=== PATIENT | female | born 1970 | race Caucasian/White ===

== ENCOUNTER 2019-08-06 09:59 | Inpatient (IN) ==
[2019-08-06] MEDS ORDERED: DILAUDID IV ONE (10:38)
[2019-08-06] MEDS ORDERED: ZOFRAN IV ONE (10:38)
[2019-08-06 11:16] LABS: BASO# 0.04 X1000 (0.0-0.2); BASO% 0.4 % (0.0-0.8); EOS# 0.45 X1000 (0.0-0.7); EOS% 4.2 % (0.0-10.0); HEMATOCRIT 38.1 % (37.0-47.0); HEMOGLOBIN 12.9 g/dL (12.0-16.0); IMM GRAN# 0.05 X1000 (0.0-0.04); IMM GRAN% 0.5 % (0.0-0.5); MCH 31.6 PG (27-31); MCHC 33.9 g/dL (33-37); MCV 93.4 FL (81-99); MONO# 0.92 X1000 (0.11-0.59); MONO% 8.6 % (1.7-9.3); MPV 10.2 FL (7.4-10.4); NEUT# 7.48 X1000 (1.4-6.5); NEUT% 70.3 % (42.2-75.2); PLT 390 X1000 (130-400); RBC 4.08 XMIL (4.2-5.4); RDW 12.2 % (11.5-14.5); WBC 10.64 X1000 (4.8-10.8)
--- NOTE | 2019-08-06 12:32 | Diag Imaging Result Doc PS360 ---
EXAM: CT ABD/PELVIS W/IV CONT ONLY 08/06/2019 HISTORY: s/p diverting colostomy, new induration/erythema TECHNIQUE: This exam was performed using automated exposure control, adjustment of mA or kV according to patient size, and/or use of iterative reconstruction technique. COMMENT: The current study is compared with the previous examination of 10/27/2018. The platelike atelectasis which was previously present in the left lower lobe has apparently resolved. There is an ill-defined area of pleural based opacity in the left lower lobe on the first image which may be due to dependent atelectasis. The liver is hypodense suggesting fatty change. The adrenal glands are not enlarged. The spleen is not enlarged. The pancreas is normal in appearance. The kidneys are without evidence of hydronephrosis or mass. There has been cholecystectomy. There is skin thickening and induration in the fat surrounding the proximal portion of the colostomy in the left anterior abdomen. There is a fluid collection adjacent to the afferent limb measuring 14 mm in diameter. The colostomy and associated changes were not present on the previous examination. The possibility of subcutaneous abscess cannot be excluded. There is stool in the ascending colon. The appendix is normal in appearance. There is no evidence of small bowel dilatation. Pelvis: There is no evidence of free fluid. The endometrial stripe is thickened particularly in the fundus. There may be a submucous fibroid in the fundus. This appearance has not changed significantly since the previous study. The urinary bladder is not distended. There is a right ovarian cyst measuring 2.5 cm in diameter. There are some degenerative disc and facet changes in the lumbar spine. No acute bony abnormalities are present. IMPRESSION: Inflammation surrounding the afferent loop of the colostomy with possible abscess. Hepatic steatosis. Right ovarian cyst. Electronically signed by Ryan Light 08/06/2019 12:30 PM
[2019-08-06] MEDS ORDERED: FLAGYL 500 MG/NS 500 MG/100 ML IVPB IV ONE (12:56)
[2019-08-06] MEDS ORDERED: CIPRO 400 MG/D5W 400 MG/200 ML IVPB IV ONE (12:56)
[2019-08-06 13:32] LABS: AGAP 13; ALB/GLOB RATIO 1.1; ALBUMIN 4.1 g/dL (3.5-5.0); ALKALINE PHOSPHATASE 110 U/L (32-104); BUN 8 mg/dL (8-22); CALCIUM 8.5 mg/dL (8.8-10.2); CHLORIDE 101 mmol/L (98-107); COSMO 280; CREATININE 0.6 mg/dL (0.5-0.9); ESTIMATED GFR > 60; GLUCOSE 108 mg/dL (70-104); GOT 18 U/L (10-30); GPT 16 U/L (10-36); POTASSIUM 3.7 mmol/L (3.5-5.1); SODIUM 141 mmol/L (136-145); TCO2 27 mmol/L (25-35); TOTAL BILIRUBIN 0.38 mg/dL (0.20-1.00); TOTAL PROTEIN 7.8 g/dL (6.3-8.3)
--- NOTE | 2019-08-06 13:42 | GENERAL SURGERY CONSULTATION ---
DATE: 08/06/2019 REQUESTING PHYSICIAN: Emergency Department. CONSULT CONCERNING: Abscess around ostomy. HISTORY OF PRESENT ILLNESS: A 48-year-old female who is well known to me who has had a transverse diverting loop colostomy for severe Crohn's places over a year ago. She noticed over the last week pain and redness and a knot appearing. She came to the emergency department because of this discomfort. CT scan was done that showed an abscess at her ostomy. She is going to be admitted to the hospitalist service. I was asked to weigh an opinion. PAST MEDICAL HISTORY: 1. Includes Crohn's. 2. Hiatal hernia. 3. Gastroesophageal reflux disease. 4. Sleep apnea. 5. Hypertension. 6. Gastritis. PAST SURGICAL HISTORY: Includes carpal tunnel, recent history of a diverting loop colostomy. SOCIAL HISTORY: Lives at home with . Nonsmoker. Occasional alcohol. ALLERGIES: None. HOME MEDICATIONS: Reviewed. FAMILY HISTORY: Reviewed with patient, noncontributory. REVIEW OF SYSTEMS: Full 14 systems reviewed are negative except as specified in HPI. PHYSICAL EXAMINATION: Vital Signs: Patient is currently afebrile. Her vital signs are stable. General: No acute distress. Alert, interactive female looks stated age. HEENT: Normocephalic, atraumatic. Pupils equal, round, reactive to light. Mucous membranes moist. Oropharynx benign. Neck: Supple. Trachea midline. Cardiovascular: Regular rate and rhythm. Lungs: Grossly clear. Abdomen: Soft, obese, tender to palpation right at diverting loop colostomy, some redness at the skin. No peritoneal signs. Ostomy appears to be viable. Extremities: Moves all extremities. Neurologic: Grossly intact. Skin: No signs of jaundice. Vascular: All extremities perfused. LABORATORY: White blood cell count 10, hematocrit 31, platelet count 390,000. CT scan independently reviewed and radiology report reviewed. ASSESSMENT AND PLAN: A 48-year-old female with abscess at a diverting loop colostomy secondary to Crohn's. Abscess. At this time I agree with admission, start on IV antibiotics. She will likely need GI consult. She may need more aggressive suppression therapy for her Crohn's maybe even need steroids. Will get the hospitalist to admit her and consult GI for further evaluation. At this point I think draining the abscess would be high risk damaging the colostomy and does not look like a large abscess so I think we can probably just manage it with antibiotics. cc: Zia Shi MD
[2019-08-06 13:51] LABS: INR 0.98; PROTIME 13.1 Seconds (11.0-16.0); PTT 30.2 Seconds (22.3-41.8)
--- NOTE | 2019-08-06 14:28 | PROVIDER DOCUMENTATION ---
This chart was entered by Lakeisha Salinas Scribe, acting as scribe for Fili Hale MD. HPI-Abdominal Pain/GI Problem - General Chief Complaint: Abdominal Pain Stated Complaint: PAIN AROUND COLOSTOMY BAG Time Seen by Provider: 08/06/19 10:27 Source: patient Allergies/Adverse Reactions: Patient Allergies Allergy/AdvReac Type Severity Reaction Status Date / Time No Known Allergies Allergy Verified 08/06/19 11:20 Home Medications: Home Medication List Medication Instructions Recorded Confirmed Last Taken Type Dicyclomine [Bentyl] 10 mg PO BID 07/23/18 10/27/18 10/26/18 21:30 History Lisinopril 20 mg PO DAILY 07/23/18 10/27/18 10/26/18 08:00 History Zolpidem Tartrate [Ambien] 5 mg PO QHS 07/23/18 10/27/18 10/26/18 23:30 History Folic Acid 1 mg PO BID 30 Days #60 tab 07/26/18 10/27/18 10/26/18 20:30 Rx Mesalamine D.r. [Asacol Hd] 800 mg PO TID 7 Days #21 tab 07/26/18 10/27/18 10/26/18 21:30 Rx Omeprazole [Prilosec] 40 mg PO BID 30 Days #60 cap 07/26/18 10/27/18 10/26/18 21:30 Rx Amphetamine Salts [Adderall] 30 mg PO BID 10/25/18 10/27/18 10/26/18 15:00 History Atorvastatin Calcium 20 mg PO DAILY 10/25/18 10/27/18 10/26/18 20:30 History Azathioprine 50 mg PO DAILY 10/25/18 10/27/18 10/26/18 08:00 History Ferrous Sulfate [Ferrousul] 325 mg PO DAILY 10/25/18 10/27/18 10/26/18 21:30 History Vedolizumab [Entyvio] 0 mg IV DIRECTED 10/25/18 10/25/18 10/23/18 10:00 History Ascorbic Acid [Vitamin C] 500 mg PO DAILY 10/27/18 10/27/18 10/26/18 21:30 History Hydrocodone Bit/Acetaminophen 1 each PO Q4H PRN PRN #30 tablet 11/02/18 Unknown Rx [Hydrocodon-Acetaminophn 10325] Prednisone 40 mg PO DAILY #0 11/02/18 10/27/18 10/26/18 08:00 Rx - History of Present Illness-ABD Nature of Presenting Problems: 48 y/o female presents to ED with pain around colostomy onset 3 days ago. Pt reports she has ulcerative colitis and had colostomy last year. Pt states her pain "felt like a bruise" at first, but has worsened since yesterday. Pt is alert and oriented. Abdominal Pain Onset Location: reports: other (around colostomy) Pain Radiation: reports: no radiation Quality of Pain: reports: aching Severity in ED: reports: mild Onset/Duration: reports: 3 days ago Timing: reports: still present, getting worse Activities at Onset: reports: none Exposure to sick contacts?: No Modifying Factors: worse with: palpation Associated Symptoms: reports: other (pain around colostomy) Similar Symptoms Previously?: No Recently seen or treated by another doctor?: No Review of Systems - Adult - REVIEW OF SYSTEMS - ADULT Constitutional: denies: chills, fever Eyes: reports: no symptoms reported Ears, Nose, Mouth & Throat: reports: no symptoms reported Cardiovascular: denies: chest pain, palpitations Respiratory: denies: cough, shortness of breath Gastrointestinal: reports: other (pain around colostomy). denies: abdominal pain, diarrhea, nausea, vomiting Genitourinary: reports: no symptoms reported Musculoskeletal: denies: back pain, joint pain Integumentary: reports: no symptoms reported Neurological: denies: dizziness/vertigo, seizure Psychiatric: reports: no symptoms reported Endocrine: reports: no symptoms reported Hematologic/Lymphatic: reports: no symptoms reported Allergic/Immunologic: reports: no symptoms reported All Other Systems: Reviewed and Negative Past History - Adult - PAST MEDICAL HISTORY-ADULT Review of Records: reports: Old Records Reviewed, Nursing Assessment Review, Medications Reviewed Major Childhood Illnesses: reports: denies history Cardiovascular: reports: HTN Respiratory: reports: sleep apnea - PRIOR SURGERIES/PROCEDURES Surgical/Procedure History: reports: orthopedic (extremity) (carpal tunnel) - IMMUNIZATION STATUS Childhood Immunizations: See Nurse Assessment Flu Vaccine: See Nurse Assessment - FAMILY HISTORY Family History: reviewed, not pertinent - SOCIAL HISTORY Smoking: non-smoker Substance Use: none/never Alcohol Use Frequency: occasionally Living Situation: family Physical Exam-General - PHYSICAL EXAM-ADULT Initial Vital Signs Reviewed: Yes - CONSTITUTIONAL General Appearance: appears well, alert, no apparent distress - EYES Eyes: PERRL/EOMI, pink conjunctivae - HEAD, EARS, NOSE, MOUTH & THROAT HENMT: normocephalic/atraumatic, moist mucous membranes, normal ENT inspection - NECK Neck: non-tender, full range of motion - RESPIRATORY Respiratory: chest non-tender, lungs clear, normal breath sounds - CARDIOVASCULAR Cardiovascular: normal peripheral pulses, regular rate, rhythm - GASTROINTESTINAL (ABDOMEN) Abdominal Exam: normal bowel sounds, non tender, soft, other (colostomy in place) - MUSCULOSKELETAL Back Exam: normal inspection, no CVA tenderness Extremity: normal range of motion, non-tender, normal gait - SKIN Integumentary: normal color, warm/dry, erythema (at the right margin of colostomy bag), tenderness (at the right margin of colostomy bag), other (induration at the right margin of colostomy bag) - NEUROLOGIC Neurologic: grossly normal - PSYCHIATRIC Psych/Mental Status: normal mood/affect, normal thought content, normal thought process, oriented x 3 Progress - PLAN OF CARE/RESULTS Progress/Plan/Lab Results: Vital Signs - 8 hr 08/06/19 10:06 Temperature 97.9 F Pulse Rate 103 H Respiratory Rate 17 Blood Pressure 110/53 O2 Sat by Pulse Oximetry 96 Laboratory Results - last 24 hr 08/06/19 10:41 WBC 10.64 RBC 4.08 L Hgb 12.9 Hct 38.1 MCV 93.4 MCH 31.6 H MCHC 33.9 RDW Std Deviation 12.2 Plt Count 390 MPV 10.2 Immature Gran % (Auto) 0.5 Neut % (Auto) 70.3 Lymph % (Auto) 16.0 L Coffey % (Auto) 8.6 Eos % (Auto) 4.2 Baso % (Auto) 0.4 Immature Gran # (Auto) 0.05 H Neut # (Auto) 7.48 H Lymph # (Auto) 1.70 Coffey # (Auto) 0.92 H Eos # (Auto) 0.45 Baso # (Auto) 0.04 Orders Category Date Time Status CT ABD/PELVIS W/IV CONT ONLY [CT] Stat Exams 08/06/19 10:33 Ordered CBC WITH DIFF [HEME] Stat Lab 08/06/19 10:41 Completed Hydromorphone [Dilaudid] Med 08/06/19 10:38 Discontinued 1 mg IV NOW ONE Ondansetron [Zofran] Med 08/06/19 10:38 Discontinued 4 mg IV NOW ONE Laboratory Tests 08/06/19 08/06/19 08/06/19 10:41 10:41 10:41 WBC 10.64 RBC 4.08 L Hgb 12.9 Hct 38.1 MCV 93.4 MCH 31.6 H MCHC 33.9 RDW Std Deviation 12.2 Plt Count 390 MPV 10.2 Immature Gran % (Auto) 0.5 Neut % (Auto) 70.3 Lymph % (Auto) 16.0 L Coffey % (Auto) 8.6 Eos % (Auto) 4.2 Baso % (Auto) 0.4 Immature Gran # (Auto) 0.05 H Neut # (Auto) 7.48 H Lymph # (Auto) 1.70 Coffey # (Auto) 0.92 H Eos # (Auto) 0.45 Baso # (Auto) 0.04 PT 13.1 INR 0.98 PTT (Actin FS) 30.2 Sodium 141 Potassium 3.7 Chloride 101 Carbon Dioxide 27 Anion Gap 13 BUN 8 Creatinine 0.6 Estimated GFR/1.73 m2 > 60 BUN/Creatinine Ratio 13 Glucose 108 H Calculated Osmolality 280 Calcium 8.5 L Total Bilirubin 0.38 AST 18 ALT 16 Alkaline Phosphatase 110 H Total Protein 7.8 Albumin 4.1 Globulin 3.7 Albumin/Globulin Ratio 1.1 Result Diagrams: 08/06/19 10:41 08/06/19 10:41 - CT/MRI 1 CT Study: Abdomen, Pelvis Impression: See EMR Report ([facility] - [address] [facility], [address], [place] [address] [facility] - [address] [place] [address] Department of Imaging Patient: LANDON CRISTOBAL Date: 08/06/19MR#: [id number] : 1970ADM Status: REG ERAcct#: [id number] Age/Sex: 48/FRoom/Bed: Loc: ED Ordering Physician: Fili Hale MD Family Physician: James,Juliano C. DO Reason for Procedure: s/p diverting colostomy, new induration/erythema Signed EXAM: CT ABD/PELVIS W/IV CONT ONLY 08/06/2019 HISTORY: s/p diverting colostomy, new induration/erythema TECHNIQUE: This exam was performed using automated exposure control, adjustment of mA or kV according to patient size, and/or use of iterative reconstruction technique. COMMENT: The current study is compared with the previous examination of 10/27/2018. The platelike atelectasis which was previously present in the left lower lobe has apparently resolved. There is an ill-defined area of pleural based opacity in the left lower lobe on the first image which may be due to dependent atelectasis. The liver is hypodense suggesting fatty change. The adrenal glands are not enlarged. The spleen is not enlarged. The pancreas is normal in appearance. The kidneys are without evidence of hydronephrosis or mass. There has been cholecystectomy. There is skin thickening and induration in the fat surrounding the proximal portion of the colostomy in the left anterior abdomen. There is a fluid collection adjacent to the afferent limb measuring 14 mm in diameter. The colostomy and associated changes were not present on the previous examination. The possibility of subcutaneous abscess cannot be excluded. There is stool in the ascending colon. The appendix is normal in appearance. There is no evidence of small bowel dilatation. Pelvis: There is no evidence of free fluid. The endometrial stripe is thickened particularly in the fundus. There may be a submucous fibroid in the fundus. This appearance has not changed significantly since the previous study. The urinary bladder is not distended. There is a right ovarian cyst measuring 2.5 cm in diameter. There are some degenerative disc and facet changes in the lumbar spine. No acute bony abnormalities are present. IMPRESSION: Inflammation surrounding the afferent loop of the colostomy with possible abscess. Hepatic steatosis. Right ovarian cyst. Electronically signed by Ryan Light 08/06/2019 12:30 PM 08/06/19 1230 Interpreting Physician: Ryan Light MD Dictated Date/Time: 08/06/19 1221 cc: Fili Hale MD; Juliano Ramirez DO) - CONSULTS/PCP/HOSPITALIST Notification #1 *Consult/PCP/Hospitalist*: Dr. Shi Time Discussed: 12:52 Reason/Comments: CT results Consult Disposition: Will see in ED, Admit (to hospitalist with GI consult) #2 Consult: KENJI Jerez for Dr. Isabel Time Discussed: 14:00 Reason/Comments: Colitis with abscess Consult Disposition: Admit Departure - Departure Date of Disposition Decision: 08/06/19 Time of Disposition Decision: 14:01 DIAGNOSIS: Colitis with abscess Disposition: ADMITTED INPATIENT 09 Certified Medical Emergency: Emergent Condition: Stable Additional Freetext Instructions: ED Follow Up Instructions: You have been treated by a care provider in the Emergency Department. These instructions are being provided to you so you can have an understanding of how to care for yourself upon discharge. Upon discharge from the Emergency Department, you are responsible for making arrangements for follow-up care by a physician of your choice. Take all prescribed medications as directed. Return to the Emergency Department immediately for any new or worsening symptoms. You may call the Physician Referral phone number at [phone] to obtain a list of Physicians who are taking new patients. Referrals and Follow-Ups: Juliano Ramirez DO [Primary Care Provider] - - Critical Care Note This patient required my direct & personal management of CC.: No Attestation - Physician/ ROBBIE Attestation Patient care was provided by Advanced Practice Provider:: No The physician spent face to face time with patient:: Yes Advanced Practice Provider documentation review:: Supervising physician onsite and consulted in the evaluation and care of this patient. The physician did have a face to face encounter with the patient. This chart was documented by the indicated scribe, (Lakeisha Salinas Scribe) and accurately reflects the services I performed and decisions made by me, [place] Fili patel MD, as attested by the provider's signature.
--- NOTE | 2019-08-06 14:57 | HISTORY AND PHYSICAL ---
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 Was admitted by Dr. Shi. She is having pain, irritation, looks like she has an abscess at about 8 o'clock under her colostomy and some surrounding swelling and wants to try antibiotics. She has been diagnosed with Crohn's disease, initially thought to be ulcerative colitis. Apparently she had some fistulas around the rectum and she got a colostomy last October and felt it was more consistent with Crohn's disease, small bowel inflammation. She is status post cholecystectomy. She has a history of hypertension, hypercholesterolemia. 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 She has had bilateral carpal tunnel release performed and then a colostomy. ALLERGIES: No known drug allergies. FAMILY HISTORY: Really no family members with known inflammatory bowel disease. She has 3 children. She has 2 siblings that neither have any trouble. Her parents did not have any health problems that she is aware. REVIEW OF SYSTEMS: General: No weight gain or loss. No fever, chills, and I think she has had some subjective fever last couple days. HEENT: No change in visual or hearing acuity. Neck: No neck pain or adenopathy appreciated. Respiratory: No increased work of breathing or dyspnea. Cardiovascular: No chest pain or tachypalpitations. GI/: No gross hematuria or dysuria. She is not having a problem with her bowels. Colostomy is emptying. Stools look normal, but she is having pain around her medial portion of her colostomy. PHYSICAL EXAMINATION: VITAL SIGNS: Temp 97.9 degrees, pulse 103, respirations 17 blood pressure 110/53. HEENT: Pupils are equal and round. LUNGS: Are clear in all lung armstrong. CARDIOVASCULAR: Regular rhythm and rate without murmur or S3. ABDOMEN: Soft. SKIN: Warm and dry. ABDOMEN: Tender area around her colostomy on the left mid abdomen and there is a point where it is very tender. She feels like that is where the abscess is, right around 8 o'clock, about 1 inch from the margin of the colostomy bag. Weight is 219 pounds. Height 5 feet 4 inches. Her pupils are equal no distended neck veins. NECK: Supple. No sign of thyromegaly. No skin rashes. No history of skin rash. No oral or nasal mucosa lesions. White blood cell count 80010, hematocrit is 38, platelet count 390,000. Sodium 141, potassium 3.7, chloride 101, BUN 8, creatinine 0.6. AST is 18, ALT is 16, alkaline phosphatase is 110. Pro- time is 13.1, INR is 0.98, PTT is 30.2. Abdominal and pelvic CT: Inflammation surrounding efferent loop of the colostomy and possible abscess, hepatic steatosis. Right ovarian cyst is appreciated as well. ASSESSMENT AND PLAN: 1. Crohn's disease with a colostomy. It appears that she has some inflammation and possible abscess around the diverting loop colostomy secondary probably to her Crohn's. We will keep her on ciprofloxacin and Flagyl which should cover good for gram-negative and anaerobes. At this point, I do not want to do a needle biopsy or drainage and continue with conservative management. We will give her IV fluids, run normal saline at 85 mL an hour. I am going to check her C-reactive protein and erythrocyte sedimentation rate to just give us an idea of the inflammatory response of the Crohn's. Nutrition looks good. Albumin is 4.1. 2. History of hypertension. Blood pressure looks good. 3. History of hypercholesterolemia. Looking over her medications, she apparently has a history of ADD as well. She is on Adderall 30 mg p.o. b.i.d. She is getting ascorbic acid 500 mg b.i.d., atorvastatin to 20 mg daily, azathioprine 50 mg p.o. daily, Curcumin 750 mg b.i.d., Bentyl 10 mg p.o. t.i.d., vitamin D which is D2, ergocalciferol 55787 units q.week, ferrous sulfate 325 mg b.i.d., folic acid 1 mg b.i.d., lisinopril 20 mg a day, Asacol HD which is 800 mg p.o. t.i.d., she was taking that for 7 days, but we will probably continue that, Prilosec 40 mg b.i.d., Entyvio, I think she may get that every couple weeks, we will see what her regimen is, Effexor XR 150 mg daily and Ambien 50 mg p.o. at bedtime. cc: Prince Isabel MD
[2019-08-06 16:23] LABS: FREE T4 1.02 ng/dL (0.93-1.70); TSH 3.05 uIUmL (0.27-4.20)
[2019-08-06] MEDS: ASACOL HD PO SCH (17:06)
[2019-08-06] MEDS: NS 1,000 ML IV SCH (17:06)
[2019-08-06] MEDS: DILAUDID IV PRN ×2 (17:07→23:23)
[2019-08-06] MEDS: BENTYL PO SCH (17:07)
[2019-08-06] MEDS: ZOFRAN IV PRN ×2 (17:36→23:23)
[2019-08-06] MEDS: PRILOSEC PO SCH (20:18)
[2019-08-06] MEDS: FOLIC ACID PO SCH (20:18)
[2019-08-06] MEDS: VITAMIN C PO SCH (20:18)
[2019-08-06] MEDS: FERROUS SULFATE PO SCH (20:18)
[2019-08-06] MEDS: FLAGYL 500 MG/NS 500 MG/100 ML IVPB IV SCH (20:18)
[2019-08-06] MEDS: AMBIEN PO SCH (20:18)
[2019-08-07] MEDS: CIPRO 400 MG/D5W 400 MG/200 ML IVPB IV SCH ×2 (02:35→13:00)
[2019-08-07] MEDS: ASACOL HD PO SCH ×3 (02:35→18:15)
[2019-08-07] MEDS: NS 1,000 ML IV SCH ×2 (05:30→15:52)
[2019-08-07] MEDS: DILAUDID IV PRN ×4 (05:30→22:01)
[2019-08-07] MEDS: ZOFRAN IV PRN ×4 (05:30→22:00)
[2019-08-07] MEDS: FLAGYL 500 MG/NS 500 MG/100 ML IVPB IV SCH ×3 (05:30→22:02)
--- NOTE | 2019-08-07 06:14 | GENERAL SURGERY PROGRESS NOTE ---
DATE: 08/07/2019 SUBJECTIVE: Patient seems to be doing about the same. Still having some abdominal pain, but otherwise doing okay. OBJECTIVE: Vital Signs: Patient is currently afebrile. Vital signs stable. General: No acute distress. HEENT: Normocephalic, atraumatic. Pupils equal, round, reactive to light. Mucous membranes moist. Oropharynx benign. Neck: Supple. Trachea midline. Cardiovascular: Regular rate and rhythm. Lungs: Grossly clear. Abdomen: Soft, tender to palpation around her ostomy. Extremities: Moves all extremities. Neurologic: Grossly intact. Skin: No signs of jaundice, but some mild redness around her ostomy. Vascular: All extremities perfused. LABORATORY: None this morning as of yet. ASSESSMENT AND PLAN: A 48-year-old female with Crohn's associated abscess at her diverting loop colostomy. Crohn's substance associated abscess. At this time, I agree with IV antibiotics. GI has been consulted, we will follow up with their recommendation. The patient will likely need some degree of immunosuppression, be it steroids or something more aggressive. We will follow up with their recommendations. cc: Zia Shi MD
[2019-08-07 06:24] LABS: BASO# 0.03 X1000 (0.0-0.2); BASO% 0.3 % (0.0-0.8); EOS% 4.9 % (0.0-10.0); HEMATOCRIT 35.2 % (37.0-47.0); HEMOGLOBIN 11.6 g/dL (12.0-16.0); IMM GRAN# 0.05 X1000 (0.0-0.04); IMM GRAN% 0.5 % (0.0-0.5); LYMPH# 1.24 X1000 (1.2-3.4); LYMPH% 12.2 % (20.5-51.1); MCH 31.4 PG (27-31); MCV 95.4 FL (81-99); MONO# 1.13 X1000 (0.11-0.59); MONO% 11.1 % (1.7-9.3); MPV 10.1 FL (7.4-10.4); NEUT# 7.24 X1000 (1.4-6.5); PLT 369 X1000 (130-400); RBC 3.69 XMIL (4.2-5.4); RDW 12.3 % (11.5-14.5); WBC 10.19 X1000 (4.8-10.8)
[2019-08-07 06:52] LABS: AGAP 10; BUN 6 mg/dL (8-22); CALCIUM 8.2 mg/dL (8.8-10.2); CHLORIDE 100 mmol/L (98-107); COSMO 276; CREATININE 0.6 mg/dL (0.5-0.9); ESTIMATED GFR > 60; GLUCOSE 143 mg/dL (70-104); POTASSIUM 3.7 mmol/L (3.5-5.1); SODIUM 138 mmol/L (136-145); TCO2 28 mmol/L (25-35)
--- NOTE | 2019-08-07 08:40 | PROGRESS NOTE ---
DATE: 08/07/2019 SUBJECTIVE: Ms. Marte feels better. Says less pain. Did get some sleep last night. She has her CPAP on. OBJECTIVE: Vital Signs: Remains afebrile, temperature 98.2 degrees, pulse 79, respirations 17, blood pressure 132/70. HEENT: Pupils are equal and round. Lungs: Clear in all lung armstrong. Cardiovascular: Regular rhythm and rate without murmur or S3. Urine output was 2800 mL. ASSESSMENT AND PLAN: 1. History of Crohn's with rectal involvement. She has a colostomy. Appears that she has irritation and subcutaneous infection at her diverting loop of the colostomy. Continue antibiotics. Appears to be doing a little better. She is on a combination of metronidazole and ciprofloxacin. 2. Blood pressure appears well controlled. 3. She is tolerating oral intake. Note that C-reactive protein was elevated at 10.53. Thyroid functions appear euthyroid. cc: Prince Isabel MD
[2019-08-07] MEDS: PATIENT'S OWN MED PO SCH ×2 (10:36→22:02)
[2019-08-07] MEDS: VITAMIN C PO SCH ×2 (10:37→22:00)
[2019-08-07] MEDS: FERROUS SULFATE PO SCH ×2 (10:37→22:00)
[2019-08-07] MEDS: EFFEXOR XR PO SCH (10:37)
[2019-08-07] MEDS: PRILOSEC PO SCH ×2 (10:37→22:00)
[2019-08-07] MEDS: PRINIVIL PO SCH (10:38)
[2019-08-07] MEDS: IMURAN PO SCH (10:38)
[2019-08-07] MEDS: FOLIC ACID PO SCH ×2 (10:38→22:00)
[2019-08-07] MEDS: BENTYL PO SCH ×3 (10:39→18:15)
[2019-08-07] MEDS: TYLENOL PO PRN ×2 (14:49→22:14)
[2019-08-07] MEDS: AMBIEN PO SCH (22:00)
[2019-08-07] MEDS: LIPITOR PO SCH (22:01)
[2019-08-08] MEDS: CIPRO 400 MG/D5W 400 MG/200 ML IVPB IV SCH ×2 (01:50→13:24)
[2019-08-08] MEDS: ASACOL HD PO SCH ×3 (01:50→17:29)
[2019-08-08] MEDS: NS 1,000 ML IV SCH ×2 (03:13→18:36)
[2019-08-08] MEDS: FLAGYL 500 MG/NS 500 MG/100 ML IVPB IV SCH ×2 (05:38→17:29)
[2019-08-08] MEDS: TYLENOL PO PRN ×2 (05:44→23:14)
[2019-08-08] MEDS: DILAUDID IV PRN ×2 (05:44→23:15)
[2019-08-08] MEDS: ZOFRAN IV PRN ×2 (05:44→23:15)
--- NOTE | 2019-08-08 06:53 | GENERAL SURGERY PROGRESS NOTE ---
DATE: 08/08/2019 SUBJECTIVE: Patient seems to be doing okay. She is having ostomy output. She said her pain is improving. OBJECTIVE: Vital Signs: Patient is currently afebrile. Her vital signs stable. General Exam: No acute distress. HEENT: Normocephalic, atraumatic. Pupils equal, round, react to light. Mucous membranes moist. Oropharynx benign. Neck: Supple, trachea midline. Cardiovascular: Regular rate and rhythm. Lungs: Grossly clear. Abdomen: Soft, some tenderness around her ostomy, some minimal erythema. No peritoneal signs. Extremities: Moves all extremities. Neurologic: Grossly intact. Skin: No signs of jaundice. Vascular: All extremities perfused. LABORATORY: None this morning as of yet, but reviewed labs from yesterday. White blood cell count still normal. ASSESSMENT AND PLAN: A 48-year-old with Crohn's disease with associated abscess and diverting loop colostomy. Crohn's disease associated abscess. At this time, I agree with IV antibiotics. GI has been consulted. We will follow up with their recommendations. At this time, continue supportive care. cc: Zia Shi MD
[2019-08-08] MEDS: PRILOSEC PO SCH ×2 (10:09→23:14)
[2019-08-08] MEDS: VITAMIN C PO SCH ×2 (10:09→23:14)
[2019-08-08] MEDS: IMURAN PO SCH (10:09)
[2019-08-08] MEDS: BENTYL PO SCH ×3 (10:10→17:29)
[2019-08-08] MEDS: FERROUS SULFATE PO SCH ×2 (10:10→23:14)
[2019-08-08] MEDS: EFFEXOR XR PO SCH (10:10)
[2019-08-08] MEDS: FOLIC ACID PO SCH ×2 (10:10→23:15)
[2019-08-08] MEDS: PRINIVIL PO SCH (10:11)
--- NOTE | 2019-08-08 13:50 | PROGRESS NOTE ---
DATE: 08/08/2019 SUBJECTIVE: Ms. Marte feels a little better, a little less pain around her colostomy. Less tenderness. Remains afebrile. OBJECTIVE: Vital Signs: Temperature 98.3 degrees, pulse 82, respirations 16, blood pressure 162/68. HEENT: Pupils are equal and round. Lungs: Clear in all lung armstrong. Cardiovascular: Regular rate without murmur or S3. Abdomen: Soft. Skin: Warm and dry. ASSESSMENT AND PLAN: A 48-year-old with Crohn disease, associated abscess in the diverting loop colostomy. Continue IV antibiotics. Does seem to be clinically better. GI has been consulted. She does appear to have improved. CURRENT ORDERS: On Ambien 5 mg at bedtime, ascorbic acid 500 mg b.i.d., Lipitor 20 mg at bedtime, Imuran, which is azathioprine 50 mg daily, ciprofloxacin 400 mg IV q.12 hours, Bentyl 10 mg t.i.d., ferrous sulfate 325 mg b.i.d., Flagyl 500 mg IV q.8, folic acid 1 mg b.i.d., getting Dilaudid 1 mg IV q.4 hours p.r.n. pain, Prinivil 20 mg a day, mesalamine DR 800 mg p.o. q.8 hours, normal saline at 85 mL an hour, Prilosec 40 mg b.i.d., and Effexor ER 150 mg daily. cc: Prince Isabel MD
--- NOTE | 2019-08-08 15:47 | GASTROENTEROLOGY CONSULTATION ---
DATE: 08/08/2019 CONSULTING PHYSICIAN: Prince Isabel MD REASON FOR CONSULT: Abscess and Crohn disease. HISTORY: This is a 48-year-old, white female patient of Dr. Owens. I have been seeing her after Dr. Owens's medical leave. The patient has history of long-term Crohn disease. She has been on multiple medication. She currently takes Asacol 800 mg p.o. t.i.d. along with Imuran and is also on Entyvio infusions. Her last Entyvio infusion was about a week or so ago. The patient has history of perianal fistulas and had undergone diversion loop colostomy to let her perianal fistula heal and has been doing quite well except occasional discharge from the fistulas but did not see any blood or mucus in her stool, and was feeling well till about till few days ago, when she started having some abdominal pain which progressively got worse. The pain was located around her loop colostomy. She had noticed an area of induration and swelling there which was extremely tender to touch. With these she came to the hospital where she underwent imaging studies which showed possibility of an abscess. She was admitted to the hospital for further treatment. The patient tells me that she did not have any fever or chills. She has not had any indigestion, heartburn or reflux. She had not had any blood or mucus in her stool in the colostomy bag, but she did have some mucus discharge from the rectum. Her appetite has been good. She has been eating well up till now. She denies any chest pain, shortness of breath or irregular heartbeat. She has not had any dysuria, polyuria or hematuria. PAST MEDICAL HISTORY: Significant for hypertension, hyperlipidemia, and carries a diagnosis of Crohn disease with perianal fistulas. PAST SURGICAL HISTORY: She has had loop colostomy and also had a cholecystectomy. Carpal tunnel release bilateral. MEDICATION PRIOR TO HOSPITALIZATION,: She has been on Adderall, vitamin C, azathioprine, curcumin, Bentyl, vitamin D, iron, folic acid, lisinopril, Asacol Prilosec, Entyvio, Effexor XR and Ambien. ALLERGIES: No known drug allergies. SOCIAL HISTORY: She is . She has 3 children. 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 She does not smoke, justyna not drink, does no do illicit drugs. FAMILY HISTORY: Noncontributory. REVIEW OF SYSTEMS: As per HPI as above. PHYSICAL EXAMINATION: General: On examination, a very pleasant white female. She is lying in bed. She is conscious, alert, appears to be in no distress. Vital Signs: Temperature 98.5 degrees, pulse 71, breathing 16, blood pressure 109/46. She is 5 feet 4 inches tall and she is 224 pounds. HEENT: Head is atraumatic, normocephalic. Eyes: Conjunctivae is normal. Sclerae anicteric. Nares are patent. No discharge. Mouth: Buccal mucosa is moist. Throat is normal. Neck: Neck is supple. No lymphadenopathy or thyromegaly. Chest: Bilaterally symmetrical, moving with respirations. Breath sounds audible bilaterally. No rhonchi or crepitations could be heard. Heart: Audible. No murmur could be appreciated. Abdomen: Has a colostomy in her left side of the abdomen above the umbilicus. The stoma is pink. There was hyperemia noted around the colostomy. There was bluish swelling noted at about 10 o'clock position, which is tender to touch. The area over hyperemia was also tender to touch. Abdomen is otherwise soft. The rest of the abdomen was nontender. I could not appreciate any mass or visceromegaly. No ascites noted. Bowel sounds are audible but sluggish. No pedal edema, cyanosis, or clubbing was noted. 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 No sensory or motor deficit. LABORATORIES: Reviewed which showed WBC of 10.19 today. Hemoglobin 11.6, hematocrit 35.2, MCV 95.4, platelets were 369. Sodium 138, potassium 3.7, chloride 100, bicarbonate 28, BUN is 6, creatinine 0.6, transaminases were normal. CT scan of the abdomen reviewed, which showed evidence off colostomy. There was significant inflammation noted surrounding the afferent loop of the colostomy and there was question of possible abscess but I did not see any air-fluid levels there. IMPRESSION: This is a 48-year-old, white female with history of Crohn disease, perianal fistula and diversion loop colostomy to let her perianal fistula heal. She has presented with abdominal pain and evidence of possible cellulitis in the peristomal area, induration noted in the peristomal area suggestive of possibly an abscess. She has responded well to antibiotics. She is currently on IV antibiotics. She has been tolerating her diet well, otherwise. She feels much better now at this point, no new suggestion except to continue current treatment. Continue the antibiotic for at least 2 weeks. We need to reassess the treatment that she is on and see if we need to change her biologics. She has not responded to Entyvio. Her last calprotectin level on 21 of April was 106. The trough level was drawn on April 28 and was also low but did not have any antibodies. She may need more frequent Entyvio infusions. We need to increase her azathioprine also. Hopefully, those measures will get her disease under control. In the meantime, we will continue to follow her while she is in the hospital. I have explained the findings and plan to the patient and she understood. All their pertinent questions were answered. cc: MD Prince Sifuentes MD
[2019-08-08] MEDS: PATIENT'S OWN MED PO SCH (18:35)
[2019-08-08] MEDS: LIPITOR PO SCH (23:14)
[2019-08-08] MEDS: AMBIEN PO SCH (23:15)
[2019-08-09] MEDS: ASACOL HD PO SCH ×3 (01:09→16:50)
[2019-08-09] MEDS: CIPRO 400 MG/D5W 400 MG/200 ML IVPB IV SCH ×2 (01:09→13:12)
[2019-08-09] MEDS: NS 1,000 ML IV SCH ×2 (02:15→18:20)
[2019-08-09] MEDS: FLAGYL 500 MG/NS 500 MG/100 ML IVPB IV SCH ×3 (02:15→16:50)
[2019-08-09] MEDS: PATIENT'S OWN MED PO SCH ×3 (07:02→21:50)
--- NOTE | 2019-08-09 09:47 | GENERAL SURGERY PROGRESS NOTE ---
DATE: 08/09/2019 SUBJECTIVE: Patient seems to be doing a little bit better. Reviewed notes from other physicians and discussed case with Cecilia Ring with Wound Care. Patient seems to be feeling a little bit less tender in the area. She is having ostomy output. OBJECTIVE: Vital Signs: The patient is currently afebrile. Her vital signs are stable. General: No acute distress. HEENT: Normocephalic, atraumatic. Pupils equal, round, reactive to light. Mucous membranes moist. Oropharynx benign. Neck: Supple. Trachea midline. Cardiovascular: Regular rate and rhythm. Lungs: Grossly clear. Abdomen: Soft. Ostomy functioning. Reviewed images taken by Cecilia Ring when the appliance was off and it looks like it has a little bit of drainage. No peritoneal signs. Extremities: Moves all extremities. Neurologic: Grossly intact. Skin: No signs of jaundice. Vascular: All extremities perfused. LABORATORY DATA: None this morning as of yet. ASSESSMENT AND PLAN: A 48-year-old female with Crohn's flare up with abscess at diverting loop colostomy. Crohn's flare-up. At this time, I appreciate GIs input. Hopefully, we can continue just with IV antibiotics and get her out of the hospital here soon. Reviewed Dr. Valderrama's notes about changing the frequency of her anti-Crohn's medications. Otherwise, continue supportive care. cc: Zia Shi MD
[2019-08-09] MEDS: FERROUS SULFATE PO SCH ×2 (10:17→20:16)
[2019-08-09] MEDS: PRINIVIL PO SCH (10:17)
[2019-08-09] MEDS: IMURAN PO SCH (10:17)
[2019-08-09] MEDS: VITAMIN C PO SCH ×2 (10:17→20:16)
[2019-08-09] MEDS: FOLIC ACID PO SCH ×2 (10:17→20:16)
[2019-08-09] MEDS: PRILOSEC PO SCH ×2 (10:17→20:16)
[2019-08-09] MEDS: EFFEXOR XR PO SCH (10:17)
[2019-08-09] MEDS: BENTYL PO SCH ×3 (10:17→16:50)
--- NOTE | 2019-08-09 18:47 | GASTROENTEROLOGY PROGRESS NOTE ---
DATE: 08/09/2019 SUBJECTIVE: The patient states she is feeling a little better today. Her abdominal area is less tender. Wound care nurse saw the patient yesterday and was able to palpate some serous fluid from an opening at reddened area. Culture was obtained. Preliminary culture showing no growth. There were white blood cells moderate, no bacteria seen, and preliminary no growth. OBJECTIVE: Vital Signs: Temperature 97.8 degrees, pulse 77, respirations 20, blood pressure 123/58. General: The patient is awake and alert, in no acute distress. Abdomen: Ostomy bag intact. The patient has less redness today to the right of the ostomy. No drainage noted. LABORATORY DATA: Hematology 10.19, hemoglobin 11.6, hematocrit 35.2, MCV 95.4. Chemistry: Sodium 138, potassium 3.7, chloride 100, CO2 is 28, BUN 6, creatinine 0.6, glucose 143, calcium 8.2. ASSESSMENT AND PLAN: 1. Crohn flare-up. 2. Abscess at diverting loop colostomy, has improved with antibiotics. 3. Would continue current medications. Patient will likely require increased dose of Imuran but we will wait until she is finished with her antibiotics. May need to increase the frequency of her Entyvio infusions. Recommend she follow up with us as an outpatient regarding change or adjustment in her medications. Further plans to be made according to her progress. I have discussed this case with Dr. Valderrama. Dictated by KENJI Olivera for Alphonso Valderrama MD cc: KENJI Quarles MD
--- NOTE | 2019-08-09 19:01 | PROGRESS NOTE ---
DATE: 08/09/2019 SUBJECTIVE: Patient has no major complaints. She feels like her cellulitis is improved. OBJECTIVE: Blood pressure is 129/53, heart rate of 80, respiratory rate 16, temperature 98.5 degrees, 98% on room air. Cardiovascular: Regular rate and rhythm. Pulmonary: Bilateral breath sounds. Clear to auscultation. Gastrointestinal: Soft, nontender, nondistended. Bowel sounds are positive. LABORATORY DATA: White count is 10, hemoglobin and hematocrit 11 and 35, platelets 369,000. Basic looked normal. She has ostomy over her left lower quadrant. There is some erythema around her ostomy site, although it is pretty heavily covered. PROBLEM LIST: 1. Diverting loop colostomy abscess associated with Crohn's colitis. She is on Cipro and Flagyl, started Thursday, the , started in the morning. So, I am going to say August 08, four days. She is also on mesalamine and Imuran per GI's recommendations. We continue antibiotics for a total of 10 days or 14 days. I think she is improving. 2. Crohn's colitis. She is on a combination of mesalamine and azathioprine, and seems to be improving. DISPOSITION: I anticipate per data management consultant's recommendations, that she should be able to go home soon, I would say tomorrow is a possibility. cc: Darian Stuart MD
[2019-08-09] MEDS: LIPITOR PO SCH (20:16)
[2019-08-09] MEDS: TYLENOL PO PRN (21:49)
[2019-08-09] MEDS: AMBIEN PO SCH (21:49)
[2019-08-09] MEDS: DILAUDID IV PRN (21:49)
[2019-08-10] MEDS: CIPRO 400 MG/D5W 400 MG/200 ML IVPB IV SCH ×2 (00:26→14:33)
[2019-08-10] MEDS: ASACOL HD PO SCH ×2 (00:26→08:27)
[2019-08-10] MEDS: FLAGYL 500 MG/NS 500 MG/100 ML IVPB IV SCH ×2 (00:26→08:27)
[2019-08-10] MEDS: NS 1,000 ML IV SCH (06:19)
--- NOTE | 2019-08-10 06:53 | GENERAL SURGERY PROGRESS NOTE ---
DATE: 08/10/2019 SUBJECTIVE: Patient feeling better. She has been afebrile. OBJECTIVE: Vital Signs: Patient is currently afebrile. Her vital signs are stable. General: No acute distress. HEENT: Normocephalic, atraumatic. Pupils equal, round, and reactive to light. Mucous membranes moist. Oropharynx benign. Neck: Supple. Trachea midline. Cardiovascular: Regular rate and rhythm. Lungs: Grossly clear. Abdomen: Soft. Less tenderness and less erythema around her ostomy. Overall improved. Extremities: Moves all extremities. Neurologic: Grossly intact. Skin: No signs of jaundice. Vascular: All extremities perfused. LABORATORY: None this morning as of yet. ASSESSMENT AND PLAN: A 48-year-old female with Crohn's flare-up with abscess, and diverting loop colostomy. Crohn's flare-up. At this time, I appreciate GI input. I think she can be discharged home soon. I do not think she needs any major intervention on her ostomy itself. We will continue to follow while she is in the hospital. cc: Zia Shi MD
[2019-08-10] MEDS: FERROUS SULFATE PO SCH (08:26)
[2019-08-10] MEDS: PRINIVIL PO SCH (08:26)
[2019-08-10] MEDS: FOLIC ACID PO SCH (08:26)
[2019-08-10] MEDS: EFFEXOR XR PO SCH (08:26)
[2019-08-10] MEDS: IMURAN PO SCH (08:26)
[2019-08-10] MEDS: BENTYL PO SCH ×2 (08:26→14:34)
[2019-08-10] MEDS: PRILOSEC PO SCH (08:26)
[2019-08-10] MEDS: VITAMIN C PO SCH (08:26)
[2019-08-10] MEDS: TYLENOL PO PRN (08:37)
[2019-08-10 15:43] VITALS: BP 135/75
--- NOTE | 2019-08-10 20:16 | GASTROENTEROLOGY PROGRESS NOTE ---
DATE: 08/10/2019 SUBJECTIVE: Patient states she is feeling better today. She is hoping to be discharged home. When discussing her medication she had been doing at home for her Crohn's, she had been doing Imuran 50 mg, she was taking two 25 mg tablets daily. She had done Entyvio every 6 weeks for 2 treatments. Prior to that, she was doing every 8 weeks. Patient states her abdominal pain has improved. OBJECTIVE: Vital Signs: Temperature 98.2 degrees, pulse 79, respirations 18, blood pressure 122/54. General: Patient is awake and alert, in no acute distress. Abdomen: Patient has less edema and erythema around the ostomy site. Essentially nontender with palpation. LABORATORY: Hematology: WBC 10.19, hemoglobin 11.6, hematocrit 35.2, platelets 369,000. Chemistry: Sodium 138, potassium 3.7, chloride 100, CO2 of 28, BUN 6, creatinine 0.6, glucose 143. ASSESSMENT AND PLAN: 1. Crohn's disease. 2. History of flare up and abscess. 3. Diverting loop colostomy. Redness has improved. Continue current management. Continue current medications. Recommend she follow up with us in the office in 2 to 3 weeks. At that time, we will repeat lab work including trough level for her Entyvio since she has done 2 treatments every 6 weeks. We may need to increase her Imuran and/or increase the frequency of her Entyvio depending on her response and lab results. Patient is to call and make an office visit. I have discussed this case with Dr. Valderrama. Dictated by KENJI Olivera for Alphonso Valderrama MD cc: KENJI Quarles MD [facility]
--- NOTE | 2019-08-11 16:08 | DISCHARGE SUMMARY ---
ADMISSION DATE: 08/06/2019 DISCHARGE DATE: 08/10/2019 DISCHARGE DIAGNOSES: 1. Cellulitis of a diverting loop colostomy abscess. 2. Crohn's colitis with exacerbation. PROCEDURES: None. CONSULTATIONS: Dr. Shi, General Surgery. Dr. Valderrama, Gastroenterology, who is her primary keyseating machine set up operator. The patient was admitted. She has a diverting colostomy related to Crohn's colitis. She has inflammation surrounding the afferent loop of the colostomy with a possible abscess and hepatic steatosis. Dr. Shi was consulted. He recommended IV antibiotics and possibly steroids. Dr. Isabel admitted the patient and she was placed on IV antibiotics, which was Cipro and Flagyl. She slowly improved. Dr. Valderrama evaluated her on the and made some recommendations, antibiotics for at least 2 weeks. She has not responded to Entyvio. Her calprotectin level was elevated. I think the plan is to get her over this episode and they are going to adjust her Entyvio and her azathioprine Imuran. The patient clinically improved and she was felt stable for discharge on the , as per discussion with the nurse. She was afebrile. White count was normal though we have not checked labs in a couple days. She has had Cipro since the . She has had 4 days. She is on mesalamine. Her discharge medications are as follows: Ambien 5 at bedtime, Adderall 30 b.i.d., Lipitor 20, azathioprine 50 daily, Bentyl 10 t.i.d., curcumin 750 b.i.d., Effexor 150 daily, Entyvio q. 6 weeks that will be adjusted, ferrous sulfate 325 b.i.d., lisinopril 20 daily, vitamin C 500 b.i.d., vitamin D2 03818 units weekly, mesalamine 800 t.i.d., Cipro 500 q. 12 for another 10 days, Flagyl 500 t.i.d. We will probably do those for 12 days just to overlap a bit, folic acid 1 b.i.d. and Prilosec 40 daily. DISCHARGE CONDITION: Stable. 32 minutes discharge. She needs to follow-up with Dr. Valderrama in 2 to 3 weeks, Dr. Shi in 2 weeks. cc: Darian Stuart MD
== END 2019-08-10 17:52 | disposition home health service (06) | DRG 394 ==
LOC: ED 09:59 → SUATTDRO 10:00 → 4N 10:00
PROVIDERS: ATTEND Internal Medicine